=== PATIENT | female | born 1975 | race Caucasian/White ===

== ENCOUNTER → 2018-02-01 | Outpatient (CLI) | payer OTHER ==
[~2018-02-01] MED LIST: ACET325T14 PO; DOCU-131 PO; IBUP-1222 PO; OXYC-302 PO; PREN1TAB60 PO
== END | disposition home or self-care (01) ==
LOC: CFH 09:35
PROVIDERS: ATTEND Obstetrics & Gynecology
DX: Z12.31 Encounter for screening mammogram for malignant neoplasm of breast (principal)
CPT/HCPCS: 77067

== ENCOUNTER 2020-08-02 16:08 | Outpatient (CLI) | payer OTHER ==
[~2020-08-02 16:08] MED LIST changes: -OXYC-302 PO; +OXYC1TAB14 PO
== END 2020-08-02 23:59 | disposition home or self-care (01) ==
LOC: CFH 16:08
PROVIDERS: ATTEND Obstetrics & Gynecology
DX: Z12.31 Encounter for screening mammogram for malignant neoplasm of breast (principal)
CPT/HCPCS: 77067